=== PATIENT | female | born 1990 | race Caucasian/White ===

== ENCOUNTER 2017-09-06 07:14 | Emergency (ER) | payer OTHER ==
[~2017-09-06] VITALS: Ht 162.6 cm; Wt 89.5 kg
[2017-09-06 07:26] VITALS: Ht 162.6 cm; Wt 89.5 kg
[2017-09-06 08:19] LABS: PLATELET COUNT 335 x10^3mcL (130-400); RED CELL DISTRIBUTION WIDTH 13.1 % (11.5-14.5)
[2017-09-06 08:22] LABS: BASOPHIL % 4.6 % (0-2)
[2017-09-06 08:23] LABS: CALCIUM 8.4 mg/dL (8.5-10.1); CARBON DIOXIDE 29.4 mmol/L (21-32); CHLORIDE SERUM 105 mmol/L (98-107); CREATININE SERUM 0.8 mg/dL (0.6-1.0); GFR1 > 60 mL/min; GLUCOSE SERUM 121 mg/dL (74-106); POTASSIUM SERUM 3.9 mmol/L (3.5-5.1); SODIUM SERUM 140 mmol/L (136-145)
[2017-09-06 08:41] LABS: FREE T4 0.97 ng/dL (0.76-1.46)
[2017-09-06 09:16] VITALS: BP 100/62
== END 2017-09-06 09:16 | disposition home or self-care (01) ==
LOC: ED 07:14
PROVIDERS: Emergency Medicine
DX: R55 Syncope and collapse (principal)
CPT/HCPCS: 36415; 84439

== ENCOUNTER 2019-07-24 20:19 | Emergency (ER) | payer MEDICAID ==
[~2019-07-24] VITALS: Ht 165.1 cm; Wt 79.4 kg
[2019-07-24 21:48] LABS: BASOPHIL % 0.4 % (0-2); RED CELL DISTRIBUTION WIDTH 13.5 % (11.5-14.5)
[2019-07-24 21:49] LABS: PLATELET COUNT 425 x10^3mcL (130-400)
[2019-07-25 00:20] VITALS: BP 97/65
== END 2019-07-25 00:20 | disposition home or self-care (01) ==
LOC: ED 20:19
PROVIDERS: Emergency Medicine
DX: O20.0 Threatened abortion (principal)
CPT/HCPCS: 36415